=== PATIENT | male | born 1960 | race Caucasian/White ===

== ENCOUNTER 2016-06-24 17:27 | Emergency (ER) | payer OTHER ==
[~2016-06-24] VITALS: Ht 188 cm; Wt 127.0 kg
[~2016-06-24 17:27] MED LIST: [UNRECOGNIZED DRUG - REMARK]
== END 2016-06-24 21:35 | disposition short-term general hospital (02) ==
LOC: ER 17:27
DX: R42 Dizziness and giddiness (principal); R11.2 Nausea with vomiting, unspecified; E86.0 Dehydration; I10 Essential (primary) hypertension; E78.00 Pure hypercholesterolemia, unspecified; E66.9 Obesity, unspecified; F41.9 Anxiety disorder, unspecified; Z98.890 Other specified postprocedural states; Z88.8 Allergy status to other drugs, medicaments and biological substances; Z79.899 Other long term (current) drug therapy; Z87.891 Personal history of nicotine dependence
CPT/HCPCS: A9150; J2405